=== PATIENT | female | born 1980 ===

== ENCOUNTER 2019-09-02 08:16 | Emergency (ER) | payer MEDICAID ==
--- NOTE | 2019-09-02 08:28 | ED Physician Documentation ---
PD HPI URI - Stated complaint Stated Complaint: CHEST TIGHTNESS/DIZZINESS - Chief complaint Chief Complaint: MHE - History obtained from History obtained from: Patient - History of Present Illness Timing - onset: How many weeks ago (1) Timing duration: Weeks (1) Timing details: Abrupt onset (onset when turned over and sat up from bed of vertigo with nausea and vomiting. Had it severely for part of a day, then lessened, and was better if held still. has feeling of pressure in ears and has had sinus congestions, particularly right maxillary, for longer term. No fever nor purulent discharge. Has had seasonal allergies in the past. Continues with positional vertigo and nausea still the past few days.), Still present Associated symptoms: Ear pain, Nasal congestion, Sinus pain. No: Fever, Dry cough, Chest pain, Dyspnea Contributing factors: No: Sick contact, Travel, Immunocompromised Improves by: Rest Worsened by: Activity Similar symptoms before: Has not had sx before Review of Systems Constitutional: denies: Fever, Chills, Myalgias Eyes: denies: Loss of vision, Photophobia Ears: reports: Ear pain Nose: reports: Rhinorrhea / runny nose, Congestion, Sinus pressure / pain Throat: denies: Sore throat Respiratory: denies: Dyspnea, Cough Skin: reports: Rash (left upper lip cold sore for couple of days, mostly dried up and not hurting now.) Musculoskeletal: denies: Neck pain, Back pain Neurologic: reports: Generalized weakness. denies: Focal weakness, Numbness, Altered mental status, Headache, Head injury PD PAST MEDICAL HISTORY - Past Medical History Cardiovascular: None Respiratory: None Neuro: None Endocrine/Autoimmune: None - Present Medications Home Medications: Ambulatory Orders Medication Instructions Recorded Confirmed Alprazolam [Xanax] 0.25 mg PO 09/02/19 Cetirizine [ZyrTEC] 10 mg PO DAILY #30 tablet 09/02/19 Citalopram [CeleXA] 10 mg PO DAILY 09/02/19 09/02/19 Meclizine HCl [Motion Sickness 25 mg PO Q6H PRN #25 tablet 09/02/19 Relief] dexAMETHasone [Decadron] 4 mg PO DAILY #5 tablet 09/02/19 hydrOXYzine HCL [Hydroxyzine HCl] 10 mg PO 09/02/19 - Allergies Allergies/Adverse Reactions: Allergies Allergy/AdvReac Type Severity Reaction Status Date / Time No Known Allergies Allergy Unknown Unknown Verified 09/02/19 08:27 PD ED PE NORMAL - Vitals Vital signs reviewed: Yes - General General: Alert and oriented X 3, No acute distress, Well developed/nourished - HEENT HEENT: PERRL, EOMI (nystagmus to the left. ), Moist mucous membranes, Pharynx benign. No: Ears normal (fluid behind TMs, without redness nor swelling. nares okay.) - Neck Neck: Supple, no meningeal sign, No adenopathy - Cardiac Cardiac: RRR, No murmur - Respiratory Respiratory: Clear bilaterally - Derm Derm: Normal color, Warm and dry, Other (left upper lip with 2 small spots of drying cold sore. 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 ), d/w patient Departure - Departure Disposition: 01 Home, Self Care Clinical Impression: Vertigo Condition: Stable Record reviewed to determine appropriate education?: Yes Instructions: ED Vertigo Unspecified Follow-Up: [facility] [Provider Group] Prescriptions: Cetirizine [ZyrTEC] 10 mg PO DAILY #30 tablet dexAMETHasone [Decadron] 4 mg PO DAILY #5 tablet Meclizine HCl [Motion Sickness Relief] 25 mg PO Q6H PRN #25 tablet PRN Reason: Vertigo Comments: This sounds like inflammation of the inner ear. That causes vertigo/dizziness. In your case its sounds most likely to be either from a viral illness or more likely seasonal allergies. It does not sound like you have any pneumonia or respiratory symptoms so very unlikely to be COVID. Use meclizine every 6 hours if needed for vertigo. Cetirizine daily for a month to help with allergies. Decadron steroid daily for 5 more days to help reduce i nflammation of the inner ear and reduce the symptoms. This should also help with your sinuses. Stay well-hydrated. Tylenol ibuprofen for fevers or pains. I would anticipate improvement over the next 2 to 3 days and resolution and recheck if not improving well. Discharge Date/Time: 09/02/19 10:13
[2019-09-02] MEDS: MECLIZINE 12.5 MG TABLET PO STA (10:01)
[2019-09-02] MEDS: CETIRIZINE 10 MG TABLET PO STA (10:01)
[2019-09-02] MEDS: CHERRY SYRUP 10 ML UDC PO ONE (10:02)
[2019-09-02] MEDS: DEXAMETHASONE 10 MG/ML VIAL PO STA (10:02)
[2019-09-02 10:13] VITALS: BP 128/75
== END 2019-09-02 10:13 | disposition home or self-care (01) ==
LOC: ED 08:16
DX: R42 Dizziness and giddiness (principal); H55.00 Unspecified nystagmus; H66.93 Otitis media, unspecified, bilateral
CPT/HCPCS: 93005; 99283; 99284; A9270

== ENCOUNTER 2019-09-14 07:00 | Outpatient (CLI) | payer MEDICAID ==
[2019-09-14 17:51] LABS: BASOPHILS # (AUTO) 0.1 10^3/uL (0.0-0.1); BASOPHILS % (AUTO) 1.2 %; EOSINOPHILS # (AUTO) 0.3 10^3/uL (0.0-0.7); EOSINOPHILS % (AUTO) 6.7 %; HGB - HEMOGLOBIN 12.4 g/dL (12.0-16.0); LYMPHOCYTES # (AUTO) 1.7 10^3/uL (1.5-3.5); LYMPHOCYTES % (AUTO) 39.9 %; MEAN CORPUSCULAR HEMOGLOBIN 32.4 pg (27.0-31.0); MEAN CORPUSCULAR VOLUME 98.2 fL (81.0-99.0); MEAN PLATELET VOLUME 11.2 fL (7.9-10.8); MONOCYTES # (AUTO) 0.3 10^3/uL (0.0-1.0); MONOCYTES % (AUTO) 7.4 %; NEUTROPHILS # (AUTO) 1.9 10^3/uL (1.5-6.6); NEUTROPHILS % (AUTO) 44.6 %; PLT - PLATELET COUNT 171 10^3/uL (130-450); RED BLOOD COUNT 3.83 10^6/uL (4.20-5.40); RED CELL DISTRIBUTION WIDTH 12.8 % (12.0-15.0); WHITE BLOOD COUNT 4.3 x10^3/uL (4.8-10.8)
[2019-09-14 18:08] LABS: ALBUMIN 4.2 g/dL (3.2-5.5); ALBUMIN/GLOBULIN RATIO 1.7 (1.0-2.2); BILIRUBIN,TOTAL 0.6 mg/dL (0.2-1.0); CALCIUM 8.6 mg/dL (8.5-10.3); CREATININE 0.6 mg/dL (0.4-1.0); TOTAL PROTEIN 6.7 g/dL (6.7-8.2)
== END 2019-09-14 23:59 | disposition home or self-care (01) ==
LOC: LAB.WCP 07:00
PROVIDERS: ATTEND Family Medicine
DX: H81.10 Benign paroxysmal vertigo, unspecified ear (principal)
CPT/HCPCS: 36415; 80053; 84443; 85025; 85651